=== PATIENT | female | born 1970 | race Caucasian/White ===

== ENCOUNTER 2024-10-27 18:52 | Emergency (ER) | payer BC ==
[2024-10-27] MEDS ORDERED: Dexamethasone 10 MG/ML VIAL ONE (19:50)
[2024-10-27] MEDS ORDERED: Acetaminophen 500 MG TAB ONE (19:51)
[2024-10-27] MEDS ORDERED: diphenhydrAMINE 50 MG/ML VIAL ONE (19:51)
[2024-10-27] MEDS ORDERED: Sodium Chloride 0.9% 2,000 ML ONE (19:51)
[2024-10-27] MEDS ORDERED: Prochlorperazine 10 MG/2 ML VIAL ONE (19:51)
[2024-10-27 19:59] LABS: Bilirubin Negative (Negative); Blood, Urine Negative (Negative); CAUTI Indications for Culture Fever or rigors; Clarity Clear (Clear); Glucose, Urine (Dipstick) Negative (Negative); Ketone, Urine Negative (Negative); Leukocyte Negative (Negative); Nitrite Negative (Negative); Protein, Urine (Dipstick) Negative (Neg-Trace); RBC/HPF None Seen HPF (0-3); Squamous Epithelial 0-3 HPF (0-3); Urobilinogen 0.2 mg/dL (Less than 2); WBC/HPF None Seen HPF (0-3)
[2024-10-27 20:01] LABS: Urine Culture Reflex No No
[2024-10-27 20:17] LABS: #Basophils 0.1 thou/uL (0.0-0.2); #Lymphocytes 1.1 thou/uL (1.20-3.40); #Monocytes 0.3 thou/uL (0.11-0.59); #Neutrophils 3.4 thou/uL (1.40-6.50); %Basophils 1.5 % (0.0-1.0); %Eosinophils 0.7 % (0.0-10.0); %Lymphocytes 22.1 % (21.0-51.0); %Monocytes 5.9 % (0.0-10.0); %Neutrophils 69.8 % (42.0-75.0); Hematocrit 37.4 % (36.0-47.0); Hemoglobin 12.3 g/dL (12.0-16.0); Mean Corpuscular HGB CONC 32.8 g/dL (32.0-36.0); Mean Corpuscular Hemoglobin 30.5 pg (27.0-31.0); Mean Platelet Volume 7.5 fL (7.4-10.4); Platelet Count 221 10x3/uL (130-400); RBC Distribution Width 10.7 % (11.5-14.5); Red Blood Cell (RBC) Count 4.03 mill/uL (4.20-5.40); White Blood Cell (WBC) Count 4.9 10x3/uL (4.8-10.8)
[2024-10-27 20:38] LABS: Troponin I Less than 0.010 ng/mL (< 0.028)
[2024-10-27 20:39] LABS: ALT (SGPT) 13 U/L (Less than 34); AST (SGOT) 24 U/L (11-34); Albumin 4.2 g/dL (3.1-4.5); Alkaline Phosphatase 50 U/L (40-110); Anion Gap 15 mmol/L (10-20); BUN (Urea Nitrogen) 7 mg/dL (9.8-20.1); Bilirubin, Total 0.6 mg/dL (0.3-1.2); Calc. Creatinine Clearance 0 mL/min (70-130); Calcium 9.3 mg/dL (7.8-10.44); Carbon Dioxide 23 mmol/L (22-29); Chloride 103 mmol/L (98-107); Estimated GFR 93; Glucose 100 mg/dL (70-105); Lipase 20 U/L (8-78); Magnesium 1.9 mg/dL (1.6-2.6); Protein, Total 7.2 g/dL (6.0-8.3); Sodium 137 mmol/L (136-145)
== END 2024-10-27 21:45 | disposition home or self-care (01) ==
LOC: MADERS 18:52
DX: R51.9 Headache, unspecified (principal); G40.909 Epilepsy, unspecified, not intractable, without status epilepticus; Z79.899 Other long term (current) drug therapy
CPT/HCPCS: 70450; 80053; 81001; 83605; 83690; 83735; 84484; 85025; 87428; 96361; 96374; 96375; J0780; J1100; J1200; J7030